=== PATIENT | female | born 1975 | race Two or more races ===

== ENCOUNTER 2018-08-18 21:32 | Inpatient (IN) | payer OTHER, SELFPAY ==
[~2018-08-18] VITALS: Ht 167.6 cm; Wt 82.6 kg
[2018-08-18] MEDS ORDERED: ONDANSETRON ODT 4 MG PO ONE (22:00)
[2018-08-18] MEDS ORDERED: OXYcodone/APAP 5/325MG TABLET PO ONE (22:00)
[2018-08-18] MEDS ORDERED: PLEASE ENTER ALLERGIES MC SCH (22:00)
[2018-08-18] MEDS ORDERED: ONDANSETRON ODT 4 MG ONE (22:16)
[2018-08-18] MEDS ORDERED: OXYcodone/APAP 5/325MG TABLET ONE (22:16)
--- NOTE | 2018-08-18 22:31 | NUR ---
HAVING REDNESS, PAIN, AND SWELLING TO LEFT ANKLE. SEEN AT [facility] ON SUNDAY AND SHE WAS TOLD SHE NEEDS XRAY. WAS TOLD IF THERE WAS DRAINAGE SHE NEEDED TO COME TO THE ER TO CHECK FOR INFECTION. BEEN HAVING THE REDNESS AND PAIN ON AND OFF FOR MONTHS. WOUND NOTED ON INSIDE L ANKLE, RED AND INFLAMMED
[2018-08-18 22:35] LABS: BASOPHILS # (AUTO) 0.02 x10^3/uL (0-0.1); BASOPHILS % (AUTO) 0 % (0-1); EOSINOPHILS # (AUTO) 0.08 x10^3/uL (0-0.4); EOSINOPHILS % (AUTO) 1 % (1-7); LYMPHOCYTES % (AUTO) 32 % (22-44); MD NO; MEAN CORPUSCULAR HGB CONC 33.8 g/dL (32.4-35.8); MEAN CORPUSCULAR VOLUME 91.8 fL (80-100); MEAN PLATELET VOLUME 8.1 fL (7.4-10.4); MONOCYTES # (AUTO) 0.49 x10^3/uL (0.2-0.8); MONOCYTES % (AUTO) 8 % (2-9); NEUTROPHILS # (AUTO) 3.78 x10^3/uL (1.8-6.8); NEUTROPHILS % (AUTO) 59 % (42-75); PLATELET COUNT 198 x10^3/uL (130-400); RED CELL DISTRIBUTION WIDTH 14.8 % (9.6-15.2)
[2018-08-18 22:39] LABS: HCT (SEDRATE) 36.8 % (34.6-47.8)
[2018-08-18 22:45] LABS: ALBUMIN 3.9 g/dL (3.4-5.0); ANION GAP 6 mmol/L (5-15); CALCIUM 8.6 mg/dL (8.5-10.1); CHLORIDE 110 mmol/L (98-107); CREATININE 0.82 mg/dL (0.55-1.02); HIGH-SENSITIVITY CRP 0.91 mg/dL (0.02-0.30)
[2018-08-18] MEDS ORDERED: HYDROmorphone 1 MG/ML, 1ML INJ IV ONE (23:00)
[2018-08-18] MEDS ORDERED: CLINDAMYCIN PMX 600MG/50ML 50 ML IV ONE (23:00)
[2018-08-18] MEDS ORDERED: CLINDAMYCIN PMX 600MG/50ML 50 ML ONE (23:16)
[2018-08-18] MEDS ORDERED: HYDROmorphone 1 MG/ML, 1ML VIAL ONE (23:16)
--- NOTE | 2018-08-18 23:21 | NUR ---
TASK RN: This RN in for IV start.
[2018-08-19] MEDS ORDERED: HYDROmorphone 2 MG/ML, 1ML ONE (00:06)
--- NOTE | 2018-08-19 00:15 | NUR ---
PAIN IN PAIN, MEDIACATED PER eMAR
[2018-08-19] MEDS: HYDROmorphone 2 MG/ML, 1ML IVPush PRN ×2 (00:16→00:36)
[2018-08-19] MEDS ORDERED: POLYETHYLENE GLYCOL 17 GM PACKET PO PRN (00:30)
[2018-08-19] MEDS ORDERED: hydrALAzine 20 MG/ML, 1ML IVPush PRN (00:30)
--- NOTE | 2018-08-19 00:35 | NUR ---
REPORT GIVEN TO MEENA NICHOLS
--- NOTE | 2018-08-19 00:36 | NUR ---
PT PLACED ON O2 AT 2L VIA [facility]
[2018-08-19] MEDS ORDERED: ENOXAPARIN 40 MG/0.4 ML ONE (00:40)
[2018-08-19] MEDS: CLINDAMYCIN PMX 300MG/50ML 50 ML IV SCH ×4 (00:47→17:58)
[2018-08-19] MEDS: ENOXAPARIN 40 MG/0.4 ML SQ SCH (00:47)
[2018-08-19 01:00] VITALS: BP 107/68
[2018-08-19 01:37] VITALS: BP 119/61
[2018-08-19] MEDS: OXYcodone IR 5MG TABLET PO PRN ×4 (06:05→22:04)
[2018-08-19 08:14] VITALS: BP 91/46
[2018-08-19] MEDS: ACETAMINOPHEN 325 MG TABLET PO PRN ×3 (12:06→22:04)
[2018-08-19 13:54] VITALS: BP 99/63
[2018-08-19] MEDS: SODIUM CHLORIDE 0.9% 1,000 ML IV SCH (14:29)
[2018-08-19] MEDS ORDERED: GADOBUTROL 10 MMOL/10 ML PFS ONE (15:37)
[2018-08-19 19:46] VITALS: BP 98/58
[2018-08-20] MEDS: ENOXAPARIN 40 MG/0.4 ML SQ SCH ×2 (00:09→23:17)
[2018-08-20] MEDS: CLINDAMYCIN PMX 300MG/50ML 50 ML IV SCH ×4 (00:09→19:10)
[2018-08-20 03:53] VITALS: BP 111/67
[2018-08-20] MEDS: SODIUM CHLORIDE 0.9% 1,000 ML IV SCH (05:26)
[2018-08-20 05:33] LABS: MEAN CORPUSCULAR HEMOGLOBIN 30.6 pg (27.0-34.8); MEAN CORPUSCULAR HGB CONC 33.2 g/dL (32.4-35.8); MEAN CORPUSCULAR VOLUME 92.2 fL (80-100); MEAN PLATELET VOLUME 8.2 fL (7.4-10.4); PLATELET COUNT 147 x10^3/uL (130-400); RED BLOOD COUNT 3.59 x10^6/uL (3.82-5.3); RED CELL DISTRIBUTION WIDTH 14.9 % (9.6-15.2)
[2018-08-20 05:40] LABS: ALBUMIN 2.9 g/dL (3.4-5.0); ANION GAP 4 mmol/L (5-15); CALCIUM 8.1 mg/dL (8.5-10.1); CHLORIDE 112 mmol/L (98-107)
[2018-08-20 05:45] LABS: ALANINE AMINOTRANSFERASE 19 U/L (12-78); ALKALINE PHOSPHATASE 50 U/L (45-117); BILIRUBIN,TOTAL 0.5 mg/dL (0.2-1.0); CREATININE 0.54 mg/dL (0.55-1.02); TOTAL PROTEIN 5.9 g/dL (6.4-8.2)
[2018-08-20 06:03] LABS: MD YES
[2018-08-20 06:07] LABS: LYMPH#(MANUAL) 2.06 x10^3/uL (1-3.4); LYMPHS% (MANUAL) 48 % (22-44); MONOS#(MANUAL) 0.43 x10^3/uL (0.3-2.7); MONOS% (MANUAL) 10 % (2-9); SEG#(MANUAL) 1.81 x10^3/uL (1.8-6.8); SEGS% (MANUAL) 42 % (42-75)
[2018-08-20 06:08] LABS: <PLATELET ESTIMATE> ADEQUATE; <PLT MORPHOLOGY> NORMAL PLT MORPH; <RBC MORPHOLOGY> NORMAL
[2018-08-20 07:24] VITALS: BP 103/62
[2018-08-20] MEDS: ACETAMINOPHEN 325 MG TABLET PO PRN ×3 (09:27→19:28)
[2018-08-20] MEDS: OXYcodone IR 5MG TABLET PO PRN ×4 (09:30→23:17)
[2018-08-20] MEDS ORDERED: OXYcodone IR 5MG TABLET PO PRN (12:30)
[2018-08-20 14:08] VITALS: BP 105/58
[2018-08-20] MEDS ORDERED: LIDOCAINE 1%-EPI 1:100K, 30ML ONE (15:00)
[2018-08-20 20:30] VITALS: BP 126/81
[2018-08-21] MEDS: CLINDAMYCIN PMX 300MG/50ML 50 ML IV SCH ×3 (01:15→13:38)
[2018-08-21] MEDS: ACETAMINOPHEN 325 MG TABLET PO PRN ×3 (03:10→19:43)
[2018-08-21] MEDS: OXYcodone IR 5MG TABLET PO PRN ×3 (03:10→19:43)
[2018-08-21] MEDS: SODIUM CHLORIDE 0.9% 1,000 ML IV SCH (03:17)
[2018-08-21 04:21] VITALS: BP 119/73
[2018-08-21 05:34] LABS: BASOPHILS # (AUTO) 0.02 x10^3/uL (0-0.1); BASOPHILS % (AUTO) 0 % (0-1); EOSINOPHILS # (AUTO) 0.05 x10^3/uL (0-0.4); EOSINOPHILS % (AUTO) 1 % (1-7); LYMPHOCYTES # (AUTO) 2.09 x10^3/uL (1-3.4); LYMPHOCYTES % (AUTO) 44 % (22-44); MD NO; MEAN CORPUSCULAR HEMOGLOBIN 30.6 pg (27.0-34.8); MEAN CORPUSCULAR HGB CONC 33.1 g/dL (32.4-35.8); MEAN CORPUSCULAR VOLUME 92.4 fL (80-100); MEAN PLATELET VOLUME 7.9 fL (7.4-10.4); MONOCYTES # (AUTO) 0.47 x10^3/uL (0.2-0.8); MONOCYTES % (AUTO) 10 % (2-9); NEUTROPHILS # (AUTO) 2.11 x10^3/uL (1.8-6.8); NEUTROPHILS % (AUTO) 45 % (42-75); PLATELET COUNT 161 x10^3/uL (130-400); RED BLOOD COUNT 3.75 x10^6/uL (3.82-5.3); RED CELL DISTRIBUTION WIDTH 14.6 % (9.6-15.2)
[2018-08-21 05:50] LABS: ANION GAP 4 mmol/L (5-15); CALCIUM 8.2 mg/dL (8.5-10.1); CHLORIDE 110 mmol/L (98-107)
[2018-08-21 05:54] LABS: ALANINE AMINOTRANSFERASE 19 U/L (12-78); ALKALINE PHOSPHATASE 49 U/L (45-117); BILIRUBIN,TOTAL 0.6 mg/dL (0.2-1.0); CREATININE 0.57 mg/dL (0.55-1.02); TOTAL PROTEIN 6.2 g/dL (6.4-8.2)
[2018-08-21 09:30] VITALS: BP 104/65
[2018-08-21] MEDS ORDERED: MORPHINE SULFATE 4 MG/ML, 1ML ONE (12:26)
[2018-08-21] MEDS ORDERED: MORPHINE SULFATE 4 MG/ML, 1ML IVPush ONE (12:30)
[2018-08-21 13:25] VITALS: BP 115/60
[2018-08-21] MEDS: CEFAZOLIN 2,000 MG in SODIUM CHLORIDE 0.9% 50 ML IV SCH ×2 (15:05→22:50)
[2018-08-21 19:32] VITALS: BP 105/54
[2018-08-22 03:50] VITALS: BP 104/59
[2018-08-22] MEDS: ACETAMINOPHEN 325 MG TABLET PO PRN ×4 (04:33→22:42)
[2018-08-22] MEDS: OXYcodone IR 5MG TABLET PO PRN ×4 (04:33→22:42)
[2018-08-22] MEDS: CEFAZOLIN 2,000 MG in SODIUM CHLORIDE 0.9% 50 ML IV SCH ×3 (06:05→22:42)
[2018-08-22] MEDS: ENOXAPARIN 40 MG/0.4 ML SQ SCH (06:05)
[2018-08-22 09:30] VITALS: BP 91/46
[2018-08-22 14:20] VITALS: BP 100/53
[2018-08-22 21:25] VITALS: BP 101/53
[2018-08-23 02:17] VITALS: BP 90/46
[2018-08-23] MEDS: OXYcodone IR 5MG TABLET PO PRN ×3 (04:44→22:44)
[2018-08-23] MEDS: ACETAMINOPHEN 325 MG TABLET PO PRN ×3 (04:44→22:43)
[2018-08-23] MEDS: ENOXAPARIN 40 MG/0.4 ML SQ SCH (06:26)
[2018-08-23] MEDS: CEFAZOLIN 2,000 MG in SODIUM CHLORIDE 0.9% 50 ML IV SCH ×3 (06:26→22:44)
[2018-08-23 08:13] VITALS: BP 103/56
[2018-08-23 15:02] VITALS: BP 105/58
[2018-08-23 21:13] VITALS: BP 113/71
[2018-08-24] MEDS: ACETAMINOPHEN 325 MG TABLET PO PRN ×2 (02:45→14:53)
[2018-08-24] MEDS: OXYcodone IR 5MG TABLET PO PRN (02:45)
[2018-08-24 02:46] VITALS: BP 99/49
[2018-08-24] MEDS: CEFAZOLIN 2,000 MG in SODIUM CHLORIDE 0.9% 50 ML IV SCH ×2 (06:22→14:30)
[2018-08-24] MEDS: ENOXAPARIN 40 MG/0.4 ML SQ SCH (06:22)
[2018-08-24 08:00] VITALS: BP 105/57
[2018-08-24] MEDS ORDERED: OXYcodone IR 5MG TABLET PO PRN (09:00)
[2018-08-24] MEDS ORDERED: CEPH-368 PO (13:26)
[2018-08-24 13:58] VITALS: BP 108/61
== END 2018-08-24 16:30 | disposition home or self-care (01) | DRG 593 ==
LOC: ED 22:59 → EDIP 23:51 → 4NOR 08-19 01:25
PROVIDERS: ADMIT Family Medicine; ATTEND Family Medicine
PROC: 0HBNXZX Excision of Left Foot Skin, External Approach, Diagnostic (ICD-10-PCS; principal; 2018-08-20)
DX: L97.329 Non-pressure chronic ulcer of left ankle with unspecified severity (principal); L03.116 Cellulitis of left lower limb; E44.0 Moderate protein-calorie malnutrition; B95.61 Methicillin susceptible Staphylococcus aureus infection as the cause of diseases classified elsewhere; I73.9 Peripheral vascular disease, unspecified; D64.9 Anemia, unspecified; Z68.29 Body mass index [BMI] 29.0-29.9, adult; Z79.01 Long term (current) use of anticoagulants; Z88.0 Allergy status to penicillin; Z88.1 Allergy status to other antibiotic agents
CPT/HCPCS: 36415; 80048; 80053; 82040; 82565; 83036; 85025; 85651; 86140; 86141; 87015; 87040; 87070; 87077; 87102; 87116; 87186; 87205; 87206; 88305; 93922; 93970; 99285; A9585; G0378; J0690; J1170; J1650; J3490; Q0162; J7030